=== PATIENT | male | born 1960 | race Caucasian/White ===

== ENCOUNTER 2025-01-21 14:43 | Outpatient (CLI) | payer BC, SELFPAY ==
--- NOTE | ~2025-01-21 | MR_ITS ---
MRI of the cervical spine Clinical History: Pain Technique: Axial T2-weighted and gradient images, and sagittal T1-weighted, T2-weighted, and STIR antonietta ges were acquired. Findings: There is no fracture or subluxation of the cervical spine. Vertebral bodies maintain normal height and alignment. No bone marrow signal abnormality seen. At C2-C3, there is moderate degenerative disc narrowing. There is disc osteophyte convex and bilatera l facet arthropathy. There is right neural foraminal narrowing and possible minimal left neural faustino inal narrowing. No canal stenosis or cord compression. At C3-C4, there is disc osteophyte complex with bilateral facet arthropathy. There is severe bilatera l neural foraminal narrowing. No canal stenosis or cord compression. At C4-C5, there is bilateral facet arthropathy, left worse than right. There is left neural foraminal narrowing. Right neural foramen may be minimally narrowed. No canal stenosis or cord compression. At C5-C6, there is diffuse disc osteophyte complex with bilateral facet arthropathy. There is bilater al neural foraminal narrowing. No canal stenosis or cord compression. At C6-C7, there is minimal disc ossify complex. There is bilateral facet arthropathy. There is left n eural foraminal narrowing. Right neural foramen probably preserved. No canal stenosis or cord carolina tricia. No abnormal signal seen in the spinal cord. Paravertebral soft tissues are unremarkable. Impression: Diffuse moderate degenerative spondylosis, as detailed above, with degenerative disc changes and mult ilevel neural foraminal narrowing. Reviewed, dictated and finalized at [facility]. Impression: Diffuse moderate degenerative spondylosis, as detailed above, with degenerative disc changes and multilevel neural foraminal narrowing.
--- NOTE | ~2025-01-21 | XR_ITS ---
[id number] Ordering provider: Margaret Barrios History: . CERVICAL PAIN . Comparison: None. FINDINGS: VERTEBRAL BODIES: Normal height and alignment. No visible fracture or subluxation. The dens is intact . Degenerative changes of the spine. DISK SPACES: Narrowing of the disc C2-C3, C5-C6 and C6-C7. Multilevel uncovertebral joint osteoarthri tic changes. Multilevel facet joint disease. PARASPINOUS SOFT TISSUES: No prevertebral soft tissue swelling. IMPRESSION: No acute osseous abnormality cervical spine. Multilevel degenerative disc disease Reviewed, dictated and finalized at location [facility].
== END 2025-01-21 14:44 | disposition home or self-care (01) ==
LOC: GOSHIMG 14:45
DX: M47.892 Other spondylosis, cervical region (principal); M50.30 Other cervical disc degeneration, unspecified cervical region
CPT/HCPCS: 72040; 72141

== ENCOUNTER 2025-04-16 09:46 | Outpatient (CLI) | payer BC, SELFPAY ==
--- NOTE | ~2025-04-16 | XR_ITS ---
XR lumbar spine min 4V Indication: Low back pain Comparison: None Findings: Dextroconvex scoliosis. Moderate loss of vertebral height throughout. Moderate to severe loss of disc height throughout, no subluxation flexion and extension. Soft tissues unremarkable Impression: No acute abnormality. Reviewed, dictated and finalized at location [facility]. Impression: No acute abnormality.
--- NOTE | ~2025-04-16 | MR_ITS ---
EXAMINATION: MR lumbar spine wo con, 04/16/2025 10:00 CDT HISTORY: Low back pain COMPARISON: None TECHNIQUE: Multi-planar multi-sequence images were obtained of the lumbar spine without contrast per protocol. FINDINGS: Moderate loss of vertebral height throughout. No fracture or subluxation. Marrow signal is appropriate. There is no abnormal signal within the posterior elements with severe facet hypertrophy noted otherwise alignment appears intact, posterior laminectomy noted at L5. The conus terminates at T12-L1, no abnormal signal in the cord Moderate to severe loss of disc height throughout with multilevel moderate disc desiccation and endplate degenerative changes The soft tissues are unremarkable L5-S1: Circumferential bulging of the disc asymmetrically to the left with ligamentum flavum and facet hypertrophy. Severe right foramina and lateral recess stenosis, moderate left foramina and lateral recess stenosis, no canal stenosis. L4-5: Circumferential bulging of the disc with ligamentum flavum and facet hypertrophy. Severe bilateral foramina, lateral recess and moderate to severe canal stenosis. L3-4: Circumferential bulging of the disc asymmetrically to the left with moderate bilateral lateral recess stenosis, and severe left foraminal stenosis of moderate right foraminal stenosis, mild canal stenosis. L2-L3: Circumferential bulging of the disc with ligamentum flavum and facet hypertrophy. Moderate to severe bilateral foramina and lateral recess stenosis, moderate canal stenosis. L1-L2: Circumferential bulging of the disc with moderate bilateral foramina and lateral recess stenosis, mild canal stenosis. IMPRESSION: Degenerative changes detailed above Reviewed, dictated and finalized at location [facility].
== END 2025-04-16 09:47 | disposition home or self-care (01) ==
LOC: MICIMG 09:52
DX: M54.50 Low back pain, unspecified (principal); M50.30 Other cervical disc degeneration, unspecified cervical region
CPT/HCPCS: 72110; 72148